=== PATIENT | male | born 1950 | race Caucasian/White ===

== ENCOUNTER 2017-07-06 15:41 | Inpatient (IN) | END 2017-07-11 16:35 | disposition home or self-care (01) | DRG 312 | DX: I95.1 Orthostatic hypotension (principal); N17.9 Acute kidney failure, unspecified; E11.22 Type 2 diabetes mellitus with diabetic chronic kidney disease; E87.1 Hypo-osmolality and hyponatremia; I12.9 Hypertensive chronic kidney disease with stage 1 through stage 4 chronic kidney disease, or unspecified chronic kidney disease; N18.9 Chronic kidney disease, unspecified; Z95.1 Presence of aortocoronary bypass graft; E78.5 Hyperlipidemia, unspecified; D64.9 Anemia, unspecified; K21.9 Gastro-esophageal reflux disease without esophagitis; N40.0 Benign prostatic hyperplasia without lower urinary tract symptoms; I65.23 Occlusion and stenosis of bilateral carotid arteries ==

== ENCOUNTER 2017-09-10 17:14 | Inpatient (IN) | END 2017-09-17 21:10 | disposition home or self-care (01) | DRG 673 ==

== ENCOUNTER 2017-11-26 20:53 | Emergency (ER) | END 2017-11-26 22:49 | disposition home or self-care (01) ==

== ENCOUNTER 2017-11-27 05:01 | Emergency (ER) | END 2017-11-27 13:29 | disposition home or self-care (01) ==

== ENCOUNTER 2018-01-06 07:37 | Day surgery (SDC) | END 2018-01-06 13:50 | disposition home or self-care (01) ==